=== PATIENT | male | born 1935 | race Caucasian/White ===

== ENCOUNTER 2024-10-10 08:30 | Outpatient (CLI) | payer MEDICARE, BC ==
--- NOTE | 2024-10-10 11:20 | VASCULAR REPORT ---
Carotid Duplex Date: 10/10/2024 08:47 AM Clinical History: Chest pain Comparison: None Technique: Duplex Doppler evaluation of the extracranial carotid and vertebral arteries including col or Doppler and spectral/pulsed waveform analysis was performed. Findings: RIGHT SIDE: The peak systolic velocities are 97 cm/s in the distal CCA and 84 cm/s in the proximal ICA.The ICA/CC A ratio is 1.17. The external carotid artery is patent with peak systolic velocity of 123 cm/s proximally. The subclavian artery is patent with peak systolic velocity of 109 cm/s proximally. There is appropriate antegrade flow in the right vertebral artery. LEFT SIDE: The peak systolic velocities are 146 cm/s in the distal CCA and 73cm/s in the proximal ICA. The ICA /CCA ratio is 0.89. The external carotid artery is patent with peak systolic velocity of 129 cm/s proximally. The subclavian artery is patent with peak systolic velocity of 129 cm/s proximally. There is appropriate antegrade flow in the left vertebral artery. IMPRESSION: No hemodynamically significant stenosis noted in the right carotid system. No hemodynamically significant stenosis noted in the left carotid system. 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 Reference: Radiology 2003; [id number]
== END 2024-10-10 23:59 | disposition home or self-care (01) ==
LOC: VAS 08:30
PROVIDERS: ATTEND Internal Medicine Cardiovascular Disease
DX: R09.89 Other specified symptoms and signs involving the circulatory and respiratory systems (principal)
CPT/HCPCS: 93880